=== PATIENT | male | born 1975 | race Asian ===

== ENCOUNTER 2023-11-01 08:41 | Day surgery (SDC) | payer BC ==
[~2023-11-01] VITALS: Ht 180.3 cm; Wt 86.2 kg
[2023-11-01 11:47] VITALS: PULSE 72; RESP 20; TEMP 97.2; O2SAT 99
[2023-11-01] MEDS ORDERED: EPINEPHrine HCL 1 MG/ML VIAL ONE (11:52)
[2023-11-01] MEDS ORDERED: LIDOCAINE MPF 2% 5mL VIAL INJ ONE (11:52)
[2023-11-01] MEDS ORDERED: CIPROFLOXACIN LACTATE/D5W 400 MG/200 ML PIGGYBACK IV ONE (11:52)
[2023-11-01] MEDS ORDERED: fentaNYL CITRATE/PF 100 MCG/2 ML AMP ONE (11:52)
[2023-11-01] MEDS ORDERED: OXYMETAZOLINE HCL 0.05% NASAL SPRAY NS ONE (11:52)
[2023-11-01] MEDS ORDERED: SUGAMMADEX SODIUM 200 MG/2 ML VIAL IV ONE (11:52)
[2023-11-01] MEDS ORDERED: MIDAZOLAM HCL 5 MG/5 ML VIAL ONE (11:52)
[2023-11-01] MEDS ORDERED: WATER FOR IRRIGATION,STERILE 1,000 ML IRRIG.SOLN IR ONE (11:52)
[2023-11-01] MEDS ORDERED: NS 1000 ML IV.SOLN IV ONE (11:52)
[2023-11-01] MEDS ORDERED: LABETALOL 100 MG/ 20ML VIAL ONE (11:52)
[2023-11-01] MEDS ORDERED: PROPOFOL 200MG/ 20ML VIAL (DIPRIVAN) IV ONE (11:52)
[2023-11-01] MEDS ORDERED: DEXAMETHASONE SOD PHOSPHATE 4 MG/ML VIAL ONE (11:52)
[2023-11-01] MEDS ORDERED: DESFLURANE 15 MIN GAS INH ONE (11:52)
[2023-11-01] MEDS ORDERED: LIDOCAINE/EPI 1% 1:100000 20 ML VIAL ONE (11:52)
[2023-11-01] MEDS ORDERED: NS IRRIG SOLN 1000 ML IR ONE (11:52)
[2023-11-01] MEDS ORDERED: ONDANSETRON HCL 4 MG/2 ML VIAL ONE (11:52)
[2023-11-01] MEDS ORDERED: ROCURONIUM BROMIDE 10 MG/ML (ZEMURON) ONE (11:52)
[2023-11-01] MEDS ORDERED: MUPIROCIN 2% TOPICAL OINTMENT 22 GM ONE (11:52)
[2023-11-01] MEDS ORDERED: ACETAMINOPHEN I.V. 1000 MG 100 ML IV ONE (11:56)
[2023-11-01] MEDS ORDERED: METOCLOPRAMIDE HCL 10 MG/2 ML VIAL IVP PRN (12:45)
[2023-11-01] MEDS ORDERED: HYDROmorphone 1 MG/ML INJ. CARTRIDGE IVP PRN ×2 (12:45)
[2023-11-01] MEDS ORDERED: LABETALOL 100 MG/ 20ML VIAL IVP PRN (12:45)
[2023-11-01] MEDS ORDERED: hydrALAZINE HCL 20 MG/ML VIAL IVP PRN (12:45)
[2023-11-01] MEDS ORDERED: LR 1,000 ML IV SCH (12:45)
[2023-11-01] MEDS ORDERED: MEPERIDINE HCL/PF 25 MG/ML DISP.SYRIN IVP PRN (12:45)
[2023-11-01] MEDS ORDERED: MIDAZOLAM HCL 2 MG/2 ML VIAL (VERSED) IVP PRN (12:45)
[2023-11-01 14:50] VITALS: BP_SYST 138
== END 2023-11-01 16:50 | disposition home or self-care (01) ==
LOC: SDS 08:41 → SMU 08:43 → SDS 16:50
PROVIDERS: ATTEND Otolaryngology
DX: D38.5 Neoplasm of uncertain behavior of other respiratory organs (principal); J34.2 Deviated nasal septum; J33.0 Polyp of nasal cavity; R43.0 Anosmia; R22.0 Localized swelling, mass and lump, head; J01.40 Acute pansinusitis, unspecified; J32.4 Chronic pansinusitis; K21.9 Gastro-esophageal reflux disease without esophagitis; Z79.899 Other long term (current) drug therapy
CPT/HCPCS: 31298; 87070; 87075; 87186; 87101; 88304; 88305; 88311; 31255; 31256; 30140; 30520; J3490; J0744; J1100; J0171; J2250; J2405; J2704; J3010; J7030; J0131; C1726; J2001